=== PATIENT | female | born 1935 | race Caucasian/White ===

== ENCOUNTER 2018-06-21 09:31 | Emergency (ER) | payer MEDICARE ==
[~2018-06-21] VITALS: Ht 160 cm; Wt 90.7 kg
[2018-06-21 09:31] VITALS: BP_SYST 184
--- NOTE | 2018-06-21 09:31 | NUR ---
Pt BIB ALS, placed to ER Bed 01, to library monitor. Report given to JAMAL Larry.
--- NOTE | 2018-06-21 09:35 | NUR ---
Dr. Cooley at bedside.
--- NOTE | 2018-06-21 09:35 | NUR ---
Patient c/c of hypoglycemia. Came in by ALS. Per Report BGL was 62mg/dl. Patient given D10 en route. Patient blood glucose en route with EMS was 152mg/dl. Current upon arrival of 103mg/dl. Patient alert and oriented x 4. Patient placed on monitor. Patient history of hypertension. Patient blood pressure upon arrival 184/72. MD aware. Spouse at bedside. Patient denies LOC, but difficult to arouse this AM.
--- NOTE | 2018-06-21 09:46 | NUR ---
Lab at bedside.
--- NOTE | 2018-06-21 09:50 | NUR ---
Patient ambulatory with steady gait to restroom for urine sample.
--- NOTE | 2018-06-21 09:58 | NUR ---
Patient taken to radiology for CT and XR via gurney. Escort: XR tech.
[2018-06-21 10:01] LABS: BASOPHILS % (AUTO) 0.3 % (0.0-2.0); EOSINOPHILS # (AUTO) 0.1 K/uL (0.0-0.4); EOSINOPHILS % (AUTO) 0.9 % (0.0-4.0); HEMATOCRIT 33.4 % (36-48); HEMOGLOBIN 10.8 g/dL (12.0-16.0); LYMPHOCYTES # (AUTO) 2.1 K/uL (1.0-5.5); LYMPHOCYTES % (AUTO) 26.7 % (20.5-51.5); MEAN CORPUSCULAR HEMOGLOBIN 31 pg (27-31); MEAN CORPUSCULAR HGB CONC 32 % (32-36); MEAN CORPUSCULAR VOLUME 97 fL (79.0-98.0); MONOCYTES # (AUTO) 0.6 K/uL (0.0-1.0); MONOCYTES % (AUTO) 7.4 % (1.7-9.3); NEUTROPHILS # (AUTO) 5.1 K/uL (1.8-7.7); NEUTROPHILS % (AUTO) 64.7 % (40.0-70.0); PLATELET COUNT (AUTO) 315 K/uL (130-430); RED BLOOD CELL COUNT(AUTO) 3.46 MIL/uL (4.2-6.2); RED CELL DISTRIBUTION WIDTH 12.6 % (9.0-15.0); WHITE BLOOD COUNT (AUTO) 7.9 K/uL (4.8-10.8)
[2018-06-21 10:14] LABS: ANION GAP 12 (5-15); CALCIUM 9.4 mg/dL (8.4-11.0); CHLORIDE 109 mmol/L (98-107); CREATININE 2.27 mg/dL (0.55-1.30); GLUCOSE 119 mg/dL (70-99); POTASSIUM 3.8 mmol/L (3.5-5.1); SODIUM SERUM 141 mmol/L (136-145); UREA NITROGEN, BLOOD 24 mg/dL (8-21)
--- NOTE | 2018-06-21 10:14 | NUR ---
Patient arrived back to ED from radiology via gurney, escorted by XR tech.
[2018-06-21 10:20] LABS: ALANINE AMINOTRANSFERASE 56 U/L (12-78); ALBUMIN 3.3 g/dL (3.4-4.8); ASPARTATE AMINOTRANSFERASE 43 U/L (10-37); TOTAL BILIRUBIN 0.3 mg/dL (0.0-1.0)
--- NOTE | 2018-06-21 11:05 | NUR ---
Repeat blood glucose of 91mg/dl. Blood pressure rechecked 183/72. Afshin called, will follow up.
--- NOTE | 2018-06-21 11:29 | NUR ---
Repeat blood glucose performed after complaint of numbness to mouth. Patient glucose level of 93mg/dl. Patient has symmetrical movements of facial movements. Able to raise eye brows, smile, scrunch noses, and denies numbness, tingling to extremities. Patient daughter at bedside.
--- NOTE | 2018-06-21 12:43 | NUR ---
Report given to Elpidio Leonard, EMT. Report called to Zaki Humphrey, charge nurse.
--- NOTE | 2018-06-21 12:52 | NUR ---
Patient given transfer information to Zaki Pepe, verbalizes understanding. Family aware of pending transfer. Transfer form signed. ER MD discussed with patient the results and treatment provided. Patient in stable condition. ID arm band removed. IV catheter intact. Opportunity for questions provided and answered.
[2018-06-21 13:15] VITALS: BP_SYST 173
== END 2018-06-21 12:51 | disposition short-term general hospital (02) ==
LOC: SED 09:31
DX: E11.65 Type 2 diabetes mellitus with hyperglycemia (principal); I10 Essential (primary) hypertension
CPT/HCPCS: 36415; 70450-TC; 71045; 80053; 85025; 99285